=== PATIENT | male | born 1985 | race Caucasian/White ===

== ENCOUNTER → 2019-07-07 | Outpatient (CLI) | payer OTHER ==
[2019-07-07 11:43] LABS: HCT 46.8 % (39.0-53.0); HGB 16.1 gm/dL (13.0-17.5); MCH 33.2 pg (25.0-35.0); MCHC 34.5 g/dL (31.0-37.0); MCV 96.2 fL (80.0-100.0); Mean Platelet Volume 6.9; Platelet Count 268 k/uL (150-450); RBC 4.87 m/uL (4.30-5.90); RDW 14.1 % (11.5-15.5); WBC 7.1 k/uL (3.8-10.6)
[2019-07-07 18:42] LABS: Anion Gap 10.3 mmol/L (4.00-12.00); Carbon Dioxide 28.7 mmol/L (21.6-31.8); Potassium 4.4 mmol/L (3.5-5.5)
== END | disposition home or self-care (01) ==
LOC: LABWHC1 11:01
PROVIDERS: ATTEND Orthopaedic Surgery
DX: Z01.812 Encounter for preprocedural laboratory examination (principal); M23.92 Unspecified internal derangement of left knee
CPT/HCPCS: 36415; 80051; 85027

== ENCOUNTER → 2019-07-10 | Day surgery (SDC) | payer BC, OTHER ==
[2019-07-04 13:07] VITALS: BMI 28.5
--- NOTE | 2019-07-09 05:17 | HP ---
HISTORY AND PHYSICAL DATE OF SURGERY: 07/10/2019 Kenneth Nava, a 33-year-old patient, is seen with progressive left knee pain. We discussed options for treatment. He elected to proceed with left knee arthroscopy. Consent regarding the procedure was obtained. PAST MEDICAL HISTORY: His past medical history is noncontributory. PAST SURGICAL HISTORY: Vasectomy. DAILY MEDICATIONS: Naprosyn. ALLERGIES: None. SOCIAL HISTORY: Denies current tobacco use. PHYSICAL EXAMINATION: Physical evaluation of the left knee: His range of motion is 0 to 130 degrees. Mild effusion. Tenderness alone the medial joint line. Positive medial Doreen's. Ligaments stable. Hip rotation without pain. Distal neurovascular exam is intact. Radiographs of the left knee revealed mild osteoarthritic changes. MRI of left knee revealed medial meniscal tear. IMPRESSION: Internal derangement of left knee with medial meniscal tear. PLAN: Left knee arthroscopy with partial meniscectomy and debridement. MMODL / IJN: [id number] /
[~2019-07-10] MED LIST: BUPIVACAIN-EPI 0.25%-1:200,000 30 ML VIAL INTRAARTIC ONE; DEXAMETHASONE SOD PHOSPHATE 10 MG/ML 1 ML VIAL IV ONE; HYDROcodone/APAP 5-325MG 1 EACH TAB PO ONE; HYDROmorphone (PF) 1 MG/ML ONE; HYDROmorphone 1 MG/ML 1 ML SYRINGE IVP ONE; KETAMINE 10 MG/ML 20 ML VIAL ONE; KETOROLAC 30 MG/ML 1 ML VIAL ONE; LACTATED RINGERS 1,000 ML IV ONE; LACTATED RINGERS 1,000 ML IV SCH; LIDOCAINE 1% INJ 10MG/ML (20 ML MDV) ONE; MIDAZOLAM 2 MG/2 ML VIAL IV PRN; MIDAZOLAM 2 MG/2 ML VIAL ONE; ONDANSETRON 4 MG/2 ML VIAL IVP ONE; PROPOFOL 10 MG/ML 20 ML VIAL IV ONE; SCOPOLAMINE 1.5MG/72HR PATCH TRANSDERM ONE; diphenhydrAMINE 50 MG/ML 1 ML VIAL IVP ONE; fentaNYL (PF) 50 MCG/ML 2 ML AMP ONE
[2019-07-10 14:33] VITALS: TEMP 97.1
[2019-07-10] MEDS: HYDROmorphone 0.5 MG/0.5 ML SYRINGE IVP PRN ×3 (14:41→15:13)
--- NOTE | 2019-07-10 14:41 | P.OP ---
Date of Procedure: 07/10/19 Preoperative Diagnosis: Internal derangement left knee Postoperative Diagnosis: 1. Tear lateral meniscus left knee 2. Grade 2 chondromalacia medial femoral condyle left knee 3. Reactive synovitis medial, lateral and suprapatellar compartments left knee Procedure(s) Performed: 1. Arthroscopic partial lateral meniscectomy left knee 2. Arthroscopic chondroplasty medial femoral condyle left knee 3. Arthroscopic partial synovectomy medial, lateral and suprapatellar compartments left knee Anesthesia: ARYA, local Surgeon: Jim Lock Estimated Blood Loss (ml): 6 Pathology: none sent Condition: stable Disposition: PACU Indications for Procedure: 33-year-old patient seen with progressive left knee pain. We discussed treatment options, he elected to proceed with arthroscopy. Operative Findings: See description of procedure Description of Procedure: Patient was taken to the operative suite. Patient underwent a general anesthetic by the department of anesthesia. Patient was given preoperative antibiotics. The left lower extremity was placed in a well-padded arthroscopic leg montanez. The left leg was prepped and draped in the normal sterile orthopedic fashion. A lateral parapatellar and suprapatellar incision was made. Trochars were inserted. Arthroscopy was initiated. Suprapatellar pouch revealed diffuse thick reactive synovitis. The patellofemoral joint appeared to articulate congruently. There was no chondromalacia present. The scope was guided into the medial gutter. No loose bodies or plica were identified. The scope was then guided into the medial compartment. A medial parapatellar incision was made. Trocar inserted followed by probe. The medial meniscus was probed and found to be stable. There was a area of grade 2 chondromalacia weightbearing surface medial femoral condyle with some fairly large osteochondral flap tears. There was thick reactive synovitis anteriorly. A formed a chondroplasty of the medial femoral condyle getting down to stable osteochondral tissue. I performed a partial synovectomy decompressing the reactive synovitis. The residual osteochondral surface was found to be stable. There was good decompression of the synovitis. Scope and probe were then guided into the intercondylar notch. Cruciates were identified, probed and found to be table. The scope and probe were then guided into lateral compartment. There was a radial tear mid body lateral meniscus. There was reactive synovitis anteriorly. There was no significant chondromalacia. I performed a partial lateral meniscectomy down to stable tissue. I performed a partial synovectomy decompressing the reactive synovitis. The residual meniscus was stable. There was good decompression of the synovitis. The scope was in guided back into the suprapatellar compartment. I introduced a motorized shaver into the suprapatellar compartment. I performed a partial synovectomy decompressing the reactive synovitis. The shaver was removed. I took one more look around the entire knee, no residual debris. Instruments were now removed from the joint. The joint was infiltrated with .25% Marcaine. Steri-Strips were applied to the portal sites. Sterile dressings were applied. The patient was placed into a PAULA hose. No tourniquet was utilized. The patient was awakened, transferred to a bed and taken to recovery stable satisfactory condition.
[2019-07-10 16:50] VITALS: BP 126/73; PULSE 86; RESP 18
== END | disposition home or self-care (01) ==
LOC: OR 11:39
PROVIDERS: ATTEND Orthopaedic Surgery
DX: S83.282A Other tear of lateral meniscus, current injury, left knee, initial encounter (principal); X58.XXXA Exposure to other specified factors, initial encounter; M94.262 Chondromalacia, left knee; M65.88 Other synovitis and tenosynovitis, other site; Z87.891 Personal history of nicotine dependence; Z79.1 Long term (current) use of non-steroidal anti-inflammatories (NSAID); Z79.899 Other long term (current) drug therapy; Z98.52 Vasectomy status
CPT/HCPCS: 29881; J2250; J1200; J1100; J0690; J2405; J2001; J3010; J1885; J1170 ×2; J2704

== ENCOUNTER → 2023-08-27 | Outpatient (CLI) | payer OTHER ==
--- NOTE | 2023-08-28 23:15 | MR ---
EXAMINATION TYPE: MR knee RT wo con DATE OF EXAM: 08/27/2023 COMPARISON: Outside right knee x-ray August 22, 2023 HISTORY: Right knee medial pain for week and a half with locking and swelling. Patient heard pop when walking up a hill. TECHNIQUE: Multiplanar, multisequence images of the knee is performed without IV contrast. FINDINGS: MEDIAL MENISCUS: Fraying and irregularity along posterior aspect of the posterior horn with some incr eased signal likely extending to inferior articular surface. LATERAL MENISCUS: Anterior and posterior horns are intact without tear. CRUCIATE LIGAMENTS: The posterior cruciate ligament is intact and unremarkable. Complete tear from th e anterior cruciate ligament from the proximal posterior distal femur. COLLATERAL LIGAMENTS: The medial collateral ligament and lateral collateral ligament complex are inta ct and unremarkable. EXTENSOR MECHANISM: Visualized quadriceps and patellar tendons are intact. EFFUSION: Large size suprapatellar joint effusion correlating with x-ray. POPLITEAL CYST: No popliteal/muñoz cyst. TRICOMPARTMENT SPACES: Tricompartment joint spaces are fairly well preserved. No significant spurring is seen. CARTILAGE: Tricompartment articular cartilage is maintained. BONE MARROW SIGNAL: No focal abnormal marrow signal is appreciated. OTHER: No additional significant abnormality is appreciated. IMPRESSION: 1. Complete ACL tear. 2. Large-sized suprapatellar joint effusion. 3. Subtle at least intrasubstance tear but suspected full-thickness tear posterior periphery of the p osterior horn medial meniscus.
== END | disposition home or self-care (01) ==
LOC: RADMRIMAIN 19:09
PROVIDERS: ATTEND Orthopaedic Surgery
DX: M23.611 Other spontaneous disruption of anterior cruciate ligament of right knee (principal); M23.321 Other meniscus derangements, posterior horn of medial meniscus, right knee; M25.461 Effusion, right knee

== ENCOUNTER → 2023-09-20 | Outpatient (CLI) | payer OTHER ==
[2023-09-21 03:14] LABS: Anion Gap 13.1 mmol/L (4.00-12.00); Carbon Dioxide 25.9 mmol/L (21.6-31.8); Potassium 4.2 mmol/L (3.5-5.5)
[2023-09-21 04:39] LABS: Basophils # (A) 0.05 X 10*3/uL (0.00-0.10); Basophils % (A) 0.6 %; Eosinophils # (A) 0.17 X 10*3/uL (0.04-0.35); Eosinophils % (A) 2.1 %; HCT 43.4 % (39.6-50.0); HGB 14.5 d/dL (13.0-17.0); Lymphocytes % (A) 30.7 %; MCHC 33.4 d/dL (32.0-37.0); MCV 98.9 FL (80.0-97.0); Mean Platelet Volume 9.8 FL (9.5-12.2); Monocytes # (A) 0.57 X 10*3/uL (0.20-1.00); NRBC Per 100 WBC 0 X 10*3/uL (0.00-0.01); Neutrophils # (A) 4.83 X 10*3/uL (1.80-7.70); Neutrophils % (A) 59.4 %; Platelet Count 292 X 10*3/uL (140-440); RBC 4.39 X 10*6/uL (4.40-5.60); WBC 8.14 X 10*3/uL (4.50-10.00)
== END | disposition home or self-care (01) ==
LOC: LABPAT 15:31
PROVIDERS: ATTEND Orthopaedic Surgery
DX: Z01.812 Encounter for preprocedural laboratory examination (principal); M23.91 Unspecified internal derangement of right knee
CPT/HCPCS: 80051; 85025

== ENCOUNTER 2023-10-10 07:41 | Day surgery (SDC) | payer OTHER ==
--- NOTE | 2023-10-09 14:40 | HP ---
HISTORY AND PHYSICAL DATE OF SURGERY: 10/10/2023. HISTORY OF PRESENT ILLNESS: Kenneth Nava is a 38-year-old patient, seen with right knee pain. No stability with history of meniscal tear and ACL tear. We discussed options. He elected to proceed with right knee arthroscopy to include allograft ACL reconstruction. Consent was obtained. PAST MEDICAL HISTORY: Noncontributory. PAST SURGICAL HISTORY: Left knee arthroscopy, vasectomy, and wisdom tooth extraction. DAILY MEDICATIONS: 1. Motrin. 2. Tylenol. ALLERGIES: None. SOCIAL HISTORY: He smokes cigarettes. PHYSICAL EVALUATION OF THE RIGHT KNEE: His range of motion is -2 to 90. Tenderness along the medial joint line. Positive medial Doreen's. Moderate effusion. +2 Ruperto's, soft endpoint. Positive pivot shift. Collateral ligaments are stable. Distal neurovascular exam is intact. IMAGING STUDIES: Right knee radiographs revealed mild osteoarthritis. Right knee MRI revealed medial meniscal tear, anterior cruciate ligament tear, and large effusion. IMPRESSION: Internal derangement of right knee with medial meniscal tear and anterior cruciate ligament tear. PLAN: Right knee arthroscopy with partial medial meniscectomy. And allograft ACL reconstruction. MMODL / IJN: [id number] /
[~2023-10-10 07:41] MED LIST changes: -BUPIVACAIN-EPI 0.25%-1:200,000 30 ML VIAL INTRAARTIC ONE; -DEXAMETHASONE SOD PHOSPHATE 10 MG/ML 1 ML VIAL IV ONE; +DEXAMETHASONE SOD PHOSPHATE 4 MG/ML 1 ML VIAL IV ONE; -HYDROcodone/APAP 5-325MG 1 EACH TAB PO ONE; -HYDROmorphone (PF) 1 MG/ML ONE; -HYDROmorphone 1 MG/ML 1 ML SYRINGE IVP ONE; -KETAMINE 10 MG/ML 20 ML VIAL ONE; -KETOROLAC 30 MG/ML 1 ML VIAL ONE; -LACTATED RINGERS 1,000 ML IV ONE; +LIDOCAINE 1% (10MG/ML) FOR IV START INTRADERMA PRN; -LIDOCAINE 1% INJ 10MG/ML (20 ML MDV) ONE; -MIDAZOLAM 2 MG/2 ML VIAL ONE; -PROPOFOL 10 MG/ML 20 ML VIAL IV ONE; -SCOPOLAMINE 1.5MG/72HR PATCH TRANSDERM ONE; -diphenhydrAMINE 50 MG/ML 1 ML VIAL IVP ONE; -fentaNYL (PF) 50 MCG/ML 2 ML AMP ONE
[2023-10-10] MEDS ORDERED: MIDAZOLAM 2 MG/2 ML VIAL IVP ONE (08:58)
[2023-10-10] MEDS ORDERED: LIDOCAINE 1% INJ 10MG/ML (20 ML MDV) ONE (09:53)
[2023-10-10] MEDS ORDERED: ROPIVACAINE 5 MG/ML 30 ML VIAL ONE (09:53)
[2023-10-10] MEDS ORDERED: DEXAMETHASONE SOD PHOSPHATE 4 MG/ML 1 ML VIAL ONE (09:53)
[2023-10-10] MEDS ORDERED: HYDROmorphone (PF) 1 MG/ML ONE (09:53)
[2023-10-10] MEDS ORDERED: PROPOFOL 10 MG/ML 20 ML VIAL IV ONE (09:53)
[2023-10-10] MEDS ORDERED: MIDAZOLAM 2 MG/2 ML VIAL ONE (09:53)
[2023-10-10] MEDS ORDERED: fentaNYL (PF) 50 MCG/ML 2 ML AMP ONE (09:53)
--- NOTE | 2023-10-10 09:55 | P.ANPRN ---
Procedure Note - Anesthesia - Nerve Block Performed Right Adductor Canal Single Time Out Performed: Yes Date of Procedure: 10/10/23 Procedure Start Time: 08:57 Procedure Stop Time: 09:00 Location of Patient: PreOp Indication: Acute Post-Operative Pain, Requested by Surgeon Sedation Type: Sedate with meaningful contact maintained Preparation: Sterile Prep Position: Supine Catheter: Indwelling Needle Types: Pajunk Needle Gauge: 21 Ultrasound used to visualize needle placement: Yes Ultrasound used to observe medication spread: Yes Injectate: 0.5% Ropivacaine (see comment for volume) (15cc 4mg dexamethasone) Blood Aspirated: No Pain Paresthesia on Injection Noted: No Resistance on Injection: Normal Image Stored and Saved: Yes Events: Uneventful and Well Tolerated
--- NOTE | 2023-10-10 09:55 | P.ANPRN ---
Procedure Note - Anesthesia - Nerve Block Performed Right Gerardck Single Time Out Performed: Yes Date of Procedure: 10/10/23 Procedure Start Time: :01 Procedure Stop Time: 09:04 Location of Patient: PreOp Indication: Acute Post-Operative Pain, Requested by Surgeon Sedation Type: Sedate with meaningful contact maintained Preparation: Sterile Prep Position: Supine Catheter: None Needle Types: Pajunk Needle Gauge: 21 Ultrasound used to visualize needle placement: Yes Ultrasound used to observe medication spread: Yes Injectate: 0.5% Ropivacaine (see comment for volume) (15cc) Blood Aspirated: No Pain Paresthesia on Injection Noted: No Resistance on Injection: Normal Image Stored and Saved: Yes Events: Uneventful and Well Tolerated
[2023-10-10] MEDS ORDERED: LACTATED RINGERS 1,000 ML IV ONE ×2 (11:29→11:53)
--- NOTE | 2023-10-10 11:46 | P.OP ---
Date of Procedure: 10/10/23 Preoperative Diagnosis: Internal derangement right knee Postoperative Diagnosis: 1. ACL tear right knee 2. Medial and lateral meniscal tears right knee 3. Reactive synovitis medial, lateral and suprapatellar compartments right knee 4. Grade 1/2 chondromalacia medial femoral condyle right knee Procedure(s) Performed: 1. Arthroscopic allograft ACL reconstruction right knee 2. Arthroscopic partial medial and lateral meniscectomy right knee 3. Arthroscopic partial synovectomy medial, lateral and suprapatellar compartments right knee 4. Arthroscopic chondroplasty medial femoral condyle right knee Implants: 1Arthrex 4.75 swivel lock anchor 2Arthrex Endobuttons Anesthesia: GETA, regional (Adductor canal block) Surgeon: Jim Lock Application Tester #1: Mario Berman Estimated Blood Loss (ml): 12 Pathology: none sent Condition: stable Disposition: PACU Indications for Procedure: 38-year-old gentleman seen with right knee pain along with instability consistent with ACL tear. We discussed options regarding treatment. He elected to proceed with right knee arthroscopy to include allograft ACL reconstruction. Operative Findings: See description of procedure Description of Procedure: Patient was taken to the operative suite. Patient underwent a general anesthetic by the department of anesthesia. Patient was given preoperative antibiotics. The right lower extremity was placed in a well-padded arthroscopic leg montanez. The right leg was prepped and draped in the normal sterile orthopedic fashion. A lateral parapatellar and suprapatellar incision was made. Trochars were inserted. Arthroscopy was initiated. Suprapatellar pouch revealed diffuse thick reactive synovitis. The patellofemoral joint appeared to articulate congruently. There was no significant chondromalacia present. The scope was guided into the medial gutter. No loose bodies or plica were identified. The scope was then guided into the medial compartment. A medial parapatellar incision was made. Trocar inserted followed by probe. There was a tear involving the posterior horn medial meniscus. There were grade 1/2 chondromalacia changes medial femoral condyle with some osteochondral flap tears. There was thick reactive synovitis anteriorly. Scope and probe were then guided into the intercondylar notch. There was a complete ACL tear present. The PCL was intact. At this point Juan David FIELD opened up our allograft and began preparing that for implantation. I now guided the scope back into the medial compartment. I performed a partial medial meniscectomy g etting down to stable meniscal tissue. I performed a chondroplasty of the medial femoral condyle getting down to stable osteochondral tissue. I performed a partial synovectomy decompressing the thick reactive synovitis. The residual meniscus was stable. The residual osteochondral surface was stable. There was good decompression of the synovitis. . The scope and probe were then guided into lateral compartment. There was a radial tear posterior horn lateral meniscus. There was no synovitis and chondromalacia present. There was thick reactive synovitis anteriorly. I performed a partial lateral meniscectomy getting down to stable meniscal tissue. I performed a partial synovectomy decompressing the reactive synovitis. The residual meniscus was stable. There was good decompression of the synovitis. I guided the scope back into the intercondylar notch area. I debrided out the remnant of the anterior cruciate ligament. I performed a notchplasty. At this point the graft was completed. Juan David FIELD now came back into the operative field to assist with the tunnels. We now created a femoral tunnel using our posterior offset guide. We shuttle suture through that tunnel. We now created our tibial inside tunnel and had a shuttle suture in that tunnel as well. We now brought the graft to the operative table. We now shuttled the graft through our femoral tunnel visually noting the Endobutton to flip along the outer cortex. We shuttled about 20 mm of graft into the femoral tunnel. With the assistance of Juan David FIELD now shuttled the tibial side of the graft into our tibial tunnel. We now removed our arthroscopic thick instruments from the joint. We extended the knee. I made a mini incision along the medial proximal tibial area. We now tension the tibial side of our graft and secured it to the outer tibia with a Arthrex Endobutton. We did use and internal brace and also secured to the proximal tibia with a Arthrex 4.75 swivel lock anchor. All residual suture limbs were clipped. We now reinitiated our arthroscopy. The graft was well-positioned. We took the knee into full extension and now placed final tensioning through the femoral side and clipped those residual suture limbs. We took the knee through full range of motion noted good positioning of our graft with no impingement. We had excellent intraoperative stability. The scope was in guided back into the suprapatellar compartment. I guided the scope into the suprapatellar compartment. I performed a partial synovectomy. The shaver was removed. There was good decompression of the synovitis. I took one more look around the entire knee, no residual debris. Instruments were now removed from the joint. All portal sites in that medial mini incision were now repaired utilizing nylon suture. We applied sterile dressings followed by loose Carlos bandage. We now placed the extremity into a soft long leg immobilizer. No tourniquet was utilized. The patient was awakened, transferred to a bed and taken to recovery stable satisfactory condition. Juan David FIELD assisted in all aspects of this complex procedure.
[2023-10-10] MEDS: HYDROmorphone 0.5 MG/0.5 ML SYRINGE IVP PRN ×4 (11:55→12:20)
[2023-10-10 12:15] VITALS: TEMP 98
[2023-10-10] MEDS ORDERED: KETOROLAC 15 MG/ML 1 ML VIAL IVP ONE (12:30)
[2023-10-10] MEDS ORDERED: HYDROcodone/APAP 7.5-325MG 1 EACH TAB ONE (12:50)
[2023-10-10] MEDS ORDERED: HYDROcodone/APAP 7.5-325MG 1 EACH TAB PO ONE (12:52)
[2023-10-10 15:14] VITALS: BP 116/78; PULSE 90; RESP 16
== END 2023-10-10 13:45 | disposition home or self-care (01) ==
LOC: OR 07:41
PROVIDERS: ATTEND Orthopaedic Surgery
DX: S83.511A Sprain of anterior cruciate ligament of right knee, initial encounter (principal); S83.281A Other tear of lateral meniscus, current injury, right knee, initial encounter; M65.861 Other synovitis and tenosynovitis, right lower leg; M94.261 Chondromalacia, right knee; G89.18 Other acute postprocedural pain; X58.XXXA Exposure to other specified factors, initial encounter; Z98.890 Other specified postprocedural states; Z79.899 Other long term (current) drug therapy
CPT/HCPCS: 64999; 64448; 29880; 29888; C1713 ×4; C1751; J2250; J1100; J0690; J2405; J2001; J3010; J1170 ×2; J2795; J1885; J2704

== ENCOUNTER → 2025-05-22 | Outpatient (CLI) | payer OTHER ==
--- NOTE | 2025-05-25 06:09 | MR ---
EXAMINATION TYPE: MR knee LT wo con DATE OF EXAM: 05/22/2025 COMPARISON: Bilateral knee x-rays May 05, 2025 HISTORY: left knee outer pain for 2 months. TECHNIQUE: Multiplanar, multisequence images of the knee is performed without IV contrast. FINDINGS: MEDIAL MENISCUS: Anterior and posterior horns are intact without tear. LATERAL MENISCUS: Anterior and posterior horns are intact without tear. CRUCIATE LIGAMENTS: The anterior and posterior cruciate ligaments are intact and unremarkable. COLLATERAL LIGAMENTS: The medial collateral ligament and lateral collateral ligament complex are inta ct and unremarkable. EXTENSOR MECHANISM: Visualized quadriceps and patellar tendons are intact. Some increased signal in t he distal quadriceps tendon and the deeper fibers of the proximal patellar tendon EFFUSION: Small size suprapatellar joint effusion. POPLITEAL CYST: Small to moderate-sized leaking popliteal/muñoz cyst. TRICOMPARTMENT SPACES: Tricompartment joint spaces are preserved. No significant spurring. CARTILAGE: In the lateral aspect of the distal medial femoral condyle abutting the articular surface there is an area of diminished T1 and increased T2 signal measuring 1.3 cm transversely by 1.5 cm AP diameter size image 22 and coronal image 20. No bony fragmentation identified. BONE MARROW SIGNAL: No focal abnormal marrow signal is appreciated. OTHER: No additional significant abnormality is appreciated. IMPRESSION: 1. No meniscal or ligamentous tear. 2. There is a 1.5 cm osteochondral injury lateral aspect of the distal medial femoral condyle. 3. Mild tendinosis distal quadriceps tendon and proximal patellar tendons. 4. Small-size suprapatellar joint effusion. 5. Small to moderate-size leaking popliteal cyst. [facility], , 05/25/2025 6:07 AM
== END | disposition home or self-care (01) ==
LOC: RADMRIMAIN 10:55
PROVIDERS: ATTEND Orthopaedic Surgery
DX: M25.462 Effusion, left knee (principal); M71.22 Synovial cyst of popliteal space [Baker], left knee; M67.864 Other specified disorders of tendon, left knee